=== PATIENT | male | born 1950 | race Caucasian/White ===

== ENCOUNTER → 2021-08-16 | Outpatient (CLI) | payer MEDICARE, BC, SELFPAY ==
--- NOTE | 2021-08-16 12:03 | MRI_ITS ---
EXAM: MR LUMBAR SPINE WITHOUT INTRAVENOUS CONTRAST CLINICAL INDICATION: pain lwo back and rt hip x 1 year, prev lumbar surgery 10 years ago TECHNIQUE: Multiplanar and multisequence MR images of the lumbar spine without intravenous contrast. This report was created using [employer] technology. COMPARISON: None. FINDINGS: VERTEBRAE: Dextroscoliosis of the lumbar spine noted with Childress angle of 32 degrees. SPINAL CORD: Unremarkable. Normal position and signal intensity of the conus medullaris. SOFT TISSUES: Unremarkable. DISCS/SPINAL CANAL/NEURAL FORAMINA: T12-L1: Broad-based disc protrusion and posterior ligamentous redundancy results in mild spinal stenosis. Intact neural foramina. L1-2: Mild disc space narrowing without disc protrusion. Posterior ligamentous redundancy and facet arthropathy with minimal impression on the thecal sac. Intact neural foramina. Normal spinal canal and lateral recesses. L2-3: Mild disc space narrowing disc protrusion. Ligamentous hypertrophy and facet arthropathy causes minor impression on the thecal sac. Intact neural foramina. Normal spinal canal and lateral recesses. L3-4: Moderate disc space narrowing. Moderate compression of the thecal sac and prominent narrowing of the left neural foramen related to facet arthropathy and bilateral disc osteophyte prominence. Normal spinal canal and lateral recesses. L4-5: Moderate spinal stenosis and left neural foraminal narrowing related to facet arthropathy, left lateral disc osteophyte complex and posterior ligamentous redundancy. L5-S1: Moderate spinal stenosis and marked right neural foraminal narrowing related to vertebral body osteophytosis, prominent facet arthropathy and posterior ligamentous redundancy. MRI/Spine Lumbar (Routine) IMPRESSION: Moderate multilevel spinal stenosis at the mid and lower lumbar level related to disc osteophyte complex and facet arthropathy. Prominent narrowing of the left L3-4 and L4-5 neural foramina and right L5-S1 neural foramina related to disc osteophyte complex and facet arthropathy. Electronically Signed: Edil Aguilera MD at 8:53 EDT ,
--- NOTE | 2021-08-16 12:30 | RAD_ITS ---
STUDY: X-RAY - ORBITS REASON FOR EXAM: Male, 70 years old. HX METAL TO EYE,, PRE MRI TECHNIQUE: 2 view(s) of the orbits were obtained. COMPARISON: None. FINDINGS: Normal bilateral orbits without a metallic orbital foreign body. Normal visualized facial bones. Bilateral maxillary sinusitis. The soft tissue structures are unremarkable. RAD/Orbits for Foreign Body IMPRESSION: No demonstrated metallic orbital foreign body. The patient is cleared for an MRI examination. Bilateral maxillary sinusitis. Electronically Signed: Molina Mann MD at 12:40 EDT ,
== END | disposition home or self-care (01) ==
PROVIDERS: Referring Provider Orthopaedic Surgery; Visit Provider Orthopaedic Surgery
DX: M51.25 Other intervertebral disc displacement, thoracolumbar region (principal); M48.07 Spinal stenosis, lumbosacral region; M47.816 Spondylosis without myelopathy or radiculopathy, lumbar region; J32.0 Chronic maxillary sinusitis; M51.26 Other intervertebral disc displacement, lumbar region
CPT/HCPCS: 70030; 72148

== ENCOUNTER → 2022-04-10 | Outpatient (CLI) | payer MEDICARE, BC, SELFPAY ==
--- NOTE | 2022-04-10 16:50 | RAD_ITS ---
STUDY: XR Hip Unilateral with Pelvis when performed; 2-3 Views 04/10/2022 4:59 PM REASON FOR EXAM: Male, 71 years old. RIGHT HIP PAIN Pain TECHNIQUE: XR Hip Unilateral with Pelvis when performed; 2-3 Views COMPARISON: 6.20.22 FINDINGS: There is a non-specific bowel gas pattern. Normal visualized soft tissue structures. Normal bilateral iliac wings, sacroiliac joints and visualized sacrum. Normal visualized bilateral superior and inferior pubic rami. Normal pubic symphysis. Normal ischial tuberosities. Normal visualized right femoral head. Normal right acetabulum. Normal right hip joint. 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 There is cortical sclerosis with sub-cortical cyst formation of the left acetabulum. There is moderate articular joint space narrowing of the left hip. RAD/HIP, UNI W/ Pelvis 2-3 Views IMPRESSION: Degenerative findings of the LEFT hips. Electronically Signed: Mando Mcdonough MD at 17:54 EST ,
== END | disposition home or self-care (01) ==
LOC: RAD 16:46
PROVIDERS: Visit Provider Anesthesiology Pain Medicine
DX: M25.551 Pain in right hip (principal)
CPT/HCPCS: 73502